=== PATIENT | female | born 1950 | race Caucasian/White ===

== ENCOUNTER 2017-04-07 15:43 | Emergency (ER) | payer MEDICARE, MEDICAID ==
[~2017-04-07] VITALS: Ht 162.6 cm; Wt 50.0 kg
[~2017-04-07 15:43] MED LIST: /ADVA50050; /ADVA50050 INH; /FERG32TA PO; /MESA40TAB PO; /PRAV20TA; /TIOT18INH INH; ACET500C PO; ACET500T2 OR; ALBU0.084 INH; ALBU17IN2 INH; ALBU83IN IN; ALBUTEROL INH; ALEVE; AMLO10TA; AMLO10TA OR; ASPI325T OR; ASPI325T5 PO; ASPI81TA4 PO; CALCCHW12 OR; CATA0.2D3; CEFT250T OR; CENTTAB PO; CHOLCRY OR; CIPR500T4 OR; CORE12.5; CORE12.5 OR; CORE25TA; COREG; COUM1TAB OR; FLAG500T OR; FLEXERIL; FLEXERIL OR; FLEXERIL PO; FOLI1TAB86 PO; GLUC500T OR; GLUC5TAB3 OR; HCTZ; HYDR25TA6; LEVA; LIDO5DIS; LISI20TA5; LISI20TA5 OR; LISI40TA; LISINOPRIL; METF1000 PO; METF500T PO; METO100T PO; NITR0.6S SL; OXYGEN; PERC5TAB8; PRAV20TA2 OR; PRAV40TA OR; PRED10TA2 OR; PRED1TA OR; PRED20TA OR; PRIL20CA; PRIL20CA OR; QUININE; REST0.05 OU; SENO8.6T9 OR; TRAM50TA2; TRAM50TA2 OR; TYLE325T5 PO; ULTR50TA PO; ULTRAM; VICO5TAB; VICO5TAB OR; VITA400C2 PO; VITACAP31 PO; VITACAP8 PO; VITAMIN B 6; VITAMIN D; ZOCO20TA OR; [UNRECOGNIZED DRUG - CODE]; [UNRECOGNIZED DRUG - OTHER]; januvia OR; levaquin OR; pr; prednisone OR
[2017-04-07] MEDS ORDERED: ONDANSETRON 4MG/2ML VIAL (J2405) IV ONE (17:15)
[2017-04-07] MEDS ORDERED: MORPHINE 2 MG/ML 1ML SYRINGE IV ONE (17:15)
[2017-04-07] MEDS ORDERED: NS 500 ML IV ONE (17:15)
[2017-04-07 17:56] VITALS: BP 204/127
== END 2017-04-07 21:25 | disposition left against medical advice (07) ==
LOC: EDSEX 15:43 → EDBD 15:43 → M ED 15:43
DX: M62.262 Nontraumatic ischemic infarction of muscle, left lower leg (principal); E11.9 Type 2 diabetes mellitus without complications; I10 Essential (primary) hypertension; J44.9 Chronic obstructive pulmonary disease, unspecified; I73.9 Peripheral vascular disease, unspecified; D64.9 Anemia, unspecified; Z88.1 Allergy status to other antibiotic agents; F17.210 Nicotine dependence, cigarettes, uncomplicated